=== PATIENT | male | born 1990 | race Caucasian/White ===

== ENCOUNTER 2023-02-07 19:48 | Emergency (ER) | payer MEDICAID, SELFPAY ==
[2023-02-07 19:49] VITALS: BP 152/97; PULSE 120; RESP 18; TEMP 37.1; O2SAT 99; BMI 28.1
[2023-02-07 21:32] VITALS: BP 144/75; PULSE 82; RESP 15; TEMP 36.8; O2SAT 98
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
== END 2023-02-07 21:36 | disposition home or self-care (01) ==
PROVIDERS: Emergency Provider Emergency Medicine
DX: Z04.1 Encounter for examination and observation following transport accident (principal); F17.210 Nicotine dependence, cigarettes, uncomplicated; V49.9XXA Car occupant (driver) (passenger) injured in unspecified traffic accident, initial encounter
CPT/HCPCS: 99281